=== PATIENT | female | born 1985 | race Two or more races ===

== ENCOUNTER 2020-10-24 19:30 | Emergency (ER) | payer MEDICAID, OTHER ==
[~2020-10-24] VITALS: Ht 165.1 cm; Wt 79.8 kg
[2020-10-24 20:40] VITALS: BP 130/75
[2020-10-24] MEDS ORDERED: NEOMYCIN-BACITRACIN-POLYM UNITDOSE PKG TOP OINT TOP ONE (21:15)
[2020-10-24] MEDS ORDERED: cefTRIAXone SOD 1,000 MG VL IM ONE (22:15)
[2020-10-24] MEDS ORDERED: TETANUS-DIPTH-ACEL PERTUSSIS 0.5ML SYR Tdap IM ONE (22:15)
== END 2020-10-24 22:35 | disposition home or self-care (01) ==
LOC: ER 19:30
DX: S61.012A Laceration without foreign body of left thumb without damage to nail, initial encounter (principal); Z23 Encounter for immunization; W01.0XXA Fall on same level from slipping, tripping and stumbling without subsequent striking against object, initial encounter; Y93.89 Activity, other specified; Y92.89 Other specified places as the place of occurrence of the external cause; Y99.8 Other external cause status
CPT/HCPCS: 12002; 73140; 90471; 90715; 96372; 99284; J0696; J2001

== ENCOUNTER 2020-12-12 21:16 | Emergency (ER) | payer MEDICAID ==
[~2020-12-12] VITALS: Ht 165.1 cm; Wt 77.1 kg
[2020-12-12 22:05] VITALS: BP 113/52
[2020-12-12] MEDS ORDERED: KETOROLAC TROMETH 60MG/2ML VIAL IM ONE (22:15)
== END 2020-12-12 22:38 | disposition home or self-care (01) ==
LOC: ER 21:16
DX: G54.0 Brachial plexus disorders (principal)
CPT/HCPCS: 96372; 99283; J1885

== ENCOUNTER 2024-07-23 20:54 | Inpatient (IN) | payer MEDICAID ==
[~2024-07-23] VITALS: Ht 165.1 cm; Wt 87.1 kg
[2024-07-23] MEDS: PIPERACILLIN-TAZO 4.5GM 100 ML IV ONE (01:15)
--- NOTE | 2024-07-23 21:17 | ED.PDOC ---
GI ASSESSMENT HPI Comments 38-year-old female with a history of chronic low back pain brought in by self complaining of lower abdominal/pelvic pain over the past hour. Patient describes the pain as as if I am in labor, severe, no particular exacerbating or alleviating factors. She denies any fever, nausea, vomiting, diarrhea, constipation or dysuria. She denies any abnormal vaginal bleeding or discharge. Chief Complaint: Pelvic Pain Time Seen by MD: 21:08 Primary Care Provider: HANNA Allergies: Coded Allergies: NO KNOWN ALLERGIES (Unverified , 10/24/20) Past Medical History Past Medical History (Other): Chronic back pain in pain management Surgical History (Other): , tubal ligation REGISTERED [facility] History: No Pertinent REGISTERED [facility] History Family History Family History: Reviewed,noncontributory to illness Social History Smoker: Non-Smoker Alcohol: Denies ETOH Use Drugs: Marijuana Lives In: Home All Other Systems: Reviewed and Negative (Comprehensive systems review obtained and negative except for what is stated in the HPI.) Physical Exam General Appearance: Moderate Distress HEENT: Other (Pupils symmetric, no facial asymmetry, moist mucous membranes) Neck: Full Range of Motion, Normal Inspection, Supple Respiratory: Lungs Clear, No Accessory Muscle Use, No Respiratory Distress, Normal Breath Sounds Cardiovascular: No Edema, No JVD, Regular Rate/Rhythm Breast Exam: Deferred Gastrointestinal: LLQ, RLQ, Suprapubic, Tenderness Genitalia: Deferred Pelvic: Deferred Rectal: Deferred Extremities: Normal inspection, Normal range of motion, Non-tender, No pedal edema Neurologic: Alert, No Motor Deficits, Normal Affect, Normal Mood, No Sensory Deficits Cerebellar Function: NOT DONE Reflexes: NOT DONE Skin: Dry, Normal Color, Warm Lymphatic: NOT DONE Was a procedure done? Was a procedure done?: No GI differential Dx Differential Diagnosis: Appendicitis, Bowel Obstruction, Constipation, Diverticular disease, Ectopic , Gastroenteritis, Ischemic Bowel, Ovarian cyst/torsion, PID, UTI, Urolithiasis, Food Poisoning, , Bacterial, Parasitic, Viral, Impaction, Kidney Stone X-Ray, Labs, Meds, VS Vital Signs Date Time Temp Pulse Resp B/P (MAP) Pulse Ox O2 Delivery O2 Flow Rate FiO2 07/23/24 21:09 97.4 113 19 165/90 (115) 95 Lab Test 07/23/24 21:50 07/23/24 21:10 Range/Units White Blood Count 7.5 4.4-10.8 10^3/uL Red Blood Count 5.00 4.0-5.20 10^6/uL Hemoglobin 14.6 12.2-16.2 g/dL Hematocrit 43.3 36.0-46.0 % Mean Corpuscular Volume 86.6 80.0-100.0 fL Mean Corpuscular Hemoglobin 29.2 28.0-32.0 pg Mean Corpuscular Hemoglobin Concent 33.7 32.0-36.0 g/dL Red Cell Distribution Width 12.8 11.8-14.3 % Platelet Count 242 140-450 10^3/uL Mean Platelet Volume 8.2 6.9-10.8 fL Neutrophils (%) (Auto) 61.0 37.0-80.0 % Lymphocytes (%) (Auto) 27.7 10.0-50.0 % Monocytes (%) (Auto) 7.1 0.0-12.0 % Eosinophils (%) (Auto) 3.9 0.0-7.0 % Basophils (%) (Auto) 0.3 0.0-2.0 % Neutrophils # (Auto) 4.6 1.6-8.6 10 ^3/uL Lymphocytes # (Auto) 2.1 0.4-5.4 10 ^3/uL Monocytes # (Auto) 0.5 0-1.3 10 ^3/uL Eosinophils # (Auto) 0.3 0-0.8 10 ^3/uL Basophils # (Auto) 0 0-0.2 10 ^3/uL Nucleated Red Blood Cells 0.1 % Sodium Level 140 136-145 mmol/L Potassium Level 3.6 3.5-5.1 mmol/L Chloride Level 106 98-107 mmol/L Carbon Dioxide Level 26 20-31 mmol/L Anion Gap 8 5-15 Blood Urea Nitrogen 12 9-23 mg/dL Creatinine 0.74 0.550-1.02 mg/dL Glomerular Filtration Rate Calc 105 >90 mL/min BUN/Creatinine Ratio 16.2 10.0-20.0 Serum Glucose 135 H 74-106 mg/dL Lactic Acid Level Pending Calcium Level 10.1 8.7-10.4 mg/dL Beta HCG, Quantitative 1.7 1.5-4.2 mIU/mL Urine Color Colorless Yellow Urine Clarity Clear Clear Urine pH 6.5 5.0-9.0 Urine Specific [place] 1.012 1.001-1.035 Urine Protein Negative Negative Urine Ketones Negative Negative Urine Blood 1+ H Negative /uL Urine Nitrite Negative Negative Urine Bilirubin Negative Negative Urine Urobilinogen Normal Negative mg/dL Urine Leukocyte Esterase Negative Negative /uL Urine RBC 2 0 - 4 /hpf Urine WBC <1 0 - 5 /hpf Urine Squamous Epithelial Cells Few <5 /hpf Urine Bacteria None seen None Seen /hpf Urine Glucose Normal Normal mg/dL PROCEDURE(s): ABPL - CT AB PEL WO CON-NO ORAL OR IV REASON: lower abd pain ORDER NUMBER(s): [id number], ACCESSION NUMBER(s): [id number] Exam: CT CT AB PEL WO CON-NO ORAL OR IV History: lower abd pain Comparison Study: None Technique: Multidetector spiral CT of the abdomen was performed from lung bases to pubic symphysis. Imaging was performed without IV contrast. Axial, coronal and sagittal multiplanar reformats were obtained from the axial data set by the technologist. Radiation Dose : 1. Abdomen/Pelvis: CTDIvol 11.1 mGy, DLP 600.18 mGy*cm. Findings: Evaluation of solid organs is limited due to lack of intravenous contrast use. Lung Bases: No acute or significant lung base finding. Normal heart size. No pleural or pericardial effusion. Liver: Liver is enlarged measuring up to 23 cm No focal lesions. Diffuse steatosis. Gallbladder and Biliary Tree: Gallbladder is surgically absent. Spleen: Unremarkable Pancreas: The pancreas is grossly normal in appearance. Adrenal Glands: Unremarkable Kidneys: Kidneys are grossly normal without calculi or hydronephrosis. Bladder: Grossly unremarkable for degree of distention. Bowel: The stomach is grossly normal in appearance. Mild concentric wall thickening throughout the distal transverse colon and ascending colon which may reflect mild infectious/inflammatory colitis. The appendix is not visualized; however, no secondary findings of acute appendicitis identified. Ascites: Absent Lymphadenopathy: No mesenteric, retroperitoneal or periportal lymphadenopathy. Abdominal Wall and Mesentery: Unremarkable. Vasculature: The visualized abdominal aorta is normal in size and caliber. Evaluation of abdominal and pelvic vessels is limited due to lack of intravenous contrast. Pelvic Organs: Unremarkable Musculoskeletal: No aggressive focal bony lesions, acute fractures or dislocation. IMPRESSION: 1. Mild infectious/inflammatory colitis. 2. Hepatomegaly with steatosis. Radiation optimization: All CT scans at this facility use at least one of these dose optimization techniques: automated exposure control mA and/or kV adjustment per patient size (includes targeted exams where dose is matched to clinical indication) or iterative reconstruction. EDURE(s): PELUS - PELVIC REASON: pelvic pain ORDER NUMBER(s): [id number], ACCESSION NUMBER(s): [id number] INDICATION: pelvic pain TECHNIQUE: Multiple real-time grayscale transabdominal sonographic images along with color and duplex Doppler of the uterus and ovaries were obtained. COMPARISON: None FINDINGS: The uterus measures 9.2 x 5.1 x 4.8 cm. The endometrial stripe measures 0.9 cm. Right ovary measures 1.8 x 1.4 x 1.8 cm with normal Doppler color flow. Simple cyst measuring up to 0.7 cm. Left ovary measures 3.6 x 3.2 x 2.1 cm with normal Doppler color flow. A simple cyst measures up to 1.4 cm. Free fluid in the cul-de-sac. IMPRESSION: 1. Grossly unremarkable pelvic ultrasound. X-Ray, Labs, Meds, VS Comment 38-year-old female with a history of chronic back pain complaining of severe pelvic/lower abdominal pain despite taking tramadol at home. Vitals Exam remarkable for moderate distress, suprapubic and bilateral lower quadrant tenderness to palpation, no tenderness to percussion, no rebound or guarding. CT abdomen and pelvis IMPRESSION: 1. Mild infectious/inflammatory colitis. 2. Hepatomegaly with steatosis. Pelvic ultrasound showed simple bilateral ovarian cysts and Doppler flow to both ovaries, otherwise grossly unremarkable CBC, basic metabolic panel, hCG, UA unremarkable for any abnormality of acute significance Lactate pending Patient treated with the following in the ED: 1 L 0.9 normal saline IV bolus, morphine 4 mg IV, Zofran 4 mg IV, Zosyn 4.5 g IV On re-evaluation, patient stated pain had somewhat improved, vitals were stable. Plan is to admit the patient for IV antibiotics and pain control. Time of 1ST Reevaluation: 21:30 Reevaluation 1ST: Unchanged Time of 2ND Reevaluation: 22:35 Reevaluation 2ND: Improved Patient Education/Counseling: Diagnosis, Treatment, Need For Follow Up Family Education/Counseling: No Family Present Departure 1 Departure Time of Disposition: 22:36 Impression: Primary Impression: Colitis Disposition: 09 ADMITTED INPATIENT Admit to: Med Surg Condition: Fair Critical Care Note Critical Care Time?: No Stability Stability form required: No Heart Score Heart Score: Heart Score Response (Comments) Value History N/A 0 EKG N/A 0 Age N/A 0 Risk Factors N/A 0 Troponin N/A 0 Total 0 MAURICIO GALVEZ MD Jul 23, 2024 21:17
[2024-07-23 22:03] LABS: Urine Bacteria None Seen /hpf (None Seen)
[2024-07-23 22:04] LABS: Basophils # (auto) 0 10 ^3/uL (0-0.2); Basophils % (auto) 0.3 % (0.0-2.0); Eosinophils # (auto) 0.3 10 ^3/uL (0-0.8); Eosinophils % (auto) 3.9 % (0.0-7.0); Hematocrit 43.3 % (36.0-46.0); Hemoglobin 14.6 g/dL (12.2-16.2); Lymphocytes # (auto) 2.1 10 ^3/uL (0.4-5.4); Lymphocytes % (auto) 27.7 % (10.0-50.0); Mean Corpuscular Hemoglobin 29.2 pg (28.0-32.0); Mean Corpuscular Hgb Conc. 33.7 g/dL (32.0-36.0); Mean Corpuscular Volume 86.6 fL (80.0-100.0); Monocytes # (auto) 0.5 10 ^3/uL (0-1.3); Monocytes % (auto) 7.1 % (0.0-12.0); Neutrophils # (auto) 4.6 10 ^3/uL (1.6-8.6); Nucleated Red Blood Cells % 0.1 %; Platelet Count (auto) 242 10^3/uL (140-450); Red Cell Distribution Width 12.8 % (11.8-14.3); White Blood Cell 7.5 10^3/uL (4.4-10.8)
[2024-07-23 22:12] LABS: Chloride 106 mmol/L (98-107); Potassium 3.6 mmol/L (3.5-5.1); Sodium 140 mmol/L (136-145)
[2024-07-23 22:13] LABS: Anion Gap 8 (5-15); Calcium 10.1 mg/dL (8.7-10.4); Carbon Dioxide 26 mmol/L (20-31)
--- NOTE | 2024-07-23 22:13 | DVH ---
Exam: CT CT AB PEL WO CON-NO ORAL OR IV History: lower abd pain Comparison Study: None Technique: Multidetector spiral CT of the abdomen was performed from lung bases to pubic symphysis. Imaging was performed without IV contrast. Axial, coronal and sagittal multiplanar reformats were ob tained from the axial data set by the technologist. Radiation Dose : 1. Abdomen/Pelvis: CTDIvol 11.1 mGy, DLP 600.18 mGy*cm. Findings: Evaluation of solid organs is limited due to lack of intravenous contrast use. Lung Bases: No acute or significant lung base finding. Normal heart size. No pleural or pericardial effusion. Liver: Liver is enlarged measuring up to 23 cm No focal lesions. Diffuse steatosis. Gallbladder and Biliary Tree: Gallbladder is surgically absent. Spleen: Unremarkable Pancreas: The pancreas is grossly normal in appearance. Adrenal Glands: Unremarkable Kidneys: Kidneys are grossly normal without calculi or hydronephrosis. Bladder: Grossly unremarkable for degree of distention. Bowel: The stomach is grossly normal in appearance. Mild concentric wall thickening throughout the di stal transverse colon and ascending colon which may reflect mild infectious/inflammatory colitis. Th e appendix is not visualized; however, no secondary findings of acute appendicitis identified. Ascites: Absent Lymphadenopathy: No mesenteric, retroperitoneal or periportal lymphadenopathy. Abdominal Wall and Mesentery: Unremarkable. Vasculature: The visualized abdominal aorta is normal in size and caliber. Evaluation of abdominal a nd pelvic vessels is limited due to lack of intravenous contrast. Pelvic Organs: Unremarkable Musculoskeletal: No aggressive focal bony lesions, acute fractures or dislocation. IMPRESSION: 1. Mild infectious/inflammatory colitis. 2. Hepatomegaly with steatosis. Radiation optimization: All CT scans at this facility use at least one of these dose optimization bob hniques: automated exposure control mA and/or kV adjustment per patient size (includes targeted exam s where dose is matched to clinical indication) or iterative reconstruction.
--- NOTE | 2024-07-23 22:15 | DVH ---
INDICATION: pelvic pain TECHNIQUE: Multiple real-time grayscale transabdominal sonographic images along with color and duplex Doppler of the uterus and ovaries were obtained. COMPARISON: None FINDINGS: The uterus measures 9.2 x 5.1 x 4.8 cm. The endometrial stripe measures 0.9 cm. Right ovary measures 1.8 x 1.4 x 1.8 cm with normal Doppler color flow. Simple cyst measuring up to 0.7 cm. Left ovary measures 3.6 x 3.2 x 2.1 cm with normal Doppler color flow. A simple cyst measures up to 1.4 cm. Free fluid in the cul-de-sac. IMPRESSION: 1. Grossly unremarkable pelvic ultrasound.
[2024-07-23 22:18] LABS: BUN/Creatinine Ratio 16.2 (10.0-20.0); Blood Urea Nitrogen 12 mg/dL (9-23); Glucose 135 mg/dL (74-106)
[2024-07-23 22:19] LABS: Urine Blood 1+ /uL (Negative); Urine Clarity Clear (Clear); Urine Color Colorless (Yellow); Urine Protein, UAD Negative (Negative); Urine Specific Gravity 1.012 (1.001-1.035); Urine Urobilinogen Normal (Negative); Urine WBC <1 /hpf (0 - 5); Urine pH 6.5 (5.0-9.0)
[2024-07-23] MEDS ORDERED: ACETAMINOPHEN 325 MG TAB PO PRN (22:45)
[2024-07-23] MEDS ORDERED: TEMAZEPAM 15 MG CAP PO PRN (22:45)
[2024-07-24 01:15] VITALS: PULSE 67; RESP 18; O2SAT 97
[2024-07-24] MEDS: MORPHINE SULFATE 4 MG/ML SYR/VIAL IV ONE (01:20)
[2024-07-24] MEDS: ONDANSETRON HCL 4 MG/2 ML VIAL IV ONE (01:21)
[2024-07-24] MEDS: SODIUM CHLORIDE 0.9% 1,000 ML IV ONE (01:21)
[2024-07-24] MEDS: metroNIDAZOLE 500MG/100ML 100 ML IV SCH (01:22)
--- NOTE | 2024-07-24 01:23 | DVHHP2 ---
History of Present Illness Reason for Visit: Abdominal pain History of Present Illness 38-year-old female presents for evaluation of abdominal pain. Patient endorses a one day history of sharp/cramping lower abdominal pain that is nonradiating. Denies nausea or vomiting. No diarrhea. No fever or chills. Past Medical History Denies Past Surgical History Tubal ligation and Family History Noncontributory Smoke: No ALCOHOL: none Drugs: Marijuana Lives: with Family Review of Systems Review of Systems Review of systems are currently negative otherwise addressed HPI. Allergies: Coded Allergies: NO KNOWN ALLERGIES (Unverified , 10/24/20) Medications Current Medications Medications Dose Ordered Sig/Vic Route Start Time Stop Time Status Last Admin Dose Admin Metronidazole 100 ml @ 100 mls/hr Q8HR IV 07/24/24 06:00 Acetaminophen/ Hydrocodone Bitart 1 tab Q4HP PRN PO 07/23/24 22:45 Temazepam 15 mg QHSP PRN PO 07/23/24 22:45 Ondansetron HCl 4 mg Q4HP PRN IV 07/23/24 22:45 Acetaminophen 650 mg Q6HP PRN PO 07/23/24 22:45 Morphine Sulfate 2 mg Q6HPRN PRN IV 07/23/24 22:45 Exam Vital Signs Vital Signs Date Time Temp Pulse Resp B/P (MAP) Pulse Ox O2 Delivery O2 Flow Rate FiO2 07/23/24 21:09 97.4 113 19 165/90 (115) 95 Exam Gen: 38-year-old female in mild distress Skin: Warm, dry, normal color and texture, no rash. HEENT: Normocephalic atraumatic, mucous membranes moist and pink. Neck: Cervical and supraclavicular nodes normal without enlargement, trachea is midline, thyroid gland is normal without masses. Pulmonary: Clear to auscultation and percussion bilaterally. Cardiac: Regular rate and rhythm. No murmur Abdomen: Soft, lower abdominal pain, nondistended, bowel sounds present all 4 quadrants, no guarding, no rigidity, no organomegaly. Extremities: No cyanosis, clubbing, no edema Neuro: Cranial nerves II through XII grossly intact, normal affect and speech, no focal motor deficits. Labs/Xrays ORDERING PHYSICIAN: MAURICIO GALVEZ MD PROCEDURE(s): PELUS - PELVIC REASON: pelvic pain ORDER NUMBER(s): [id number], ACCESSION NUMBER(s): [id number] INDICATION: pelvic pain TECHNIQUE: Multiple real-time grayscale transabdominal sonographic images along with color and duplex Doppler of the uterus and ovaries were obtained. COMPARISON: None FINDINGS: The uterus measures 9.2 x 5.1 x 4.8 cm. The endometrial stripe measures 0.9 cm. Right ovary measures 1.8 x 1.4 x 1.8 cm with normal Doppler color flow. Simple cyst measuring up to 0.7 cm. Left ovary measures 3.6 x 3.2 x 2.1 cm with normal Doppler color flow. A simple cyst measures up to 1.4 cm. Free fluid in the cul-de-sac. IMPRESSION: 1. Grossly unremarkable pelvic ultrasound. RING PHYSICIAN: MAURICIO GALVEZ MD PROCEDURE(s): ABPL - CT AB PEL WO CON-NO ORAL OR IV REASON: lower abd pain ORDER NUMBER(s): [id number], ACCESSION NUMBER(s): [id number] Exam: CT CT AB PEL WO CON-NO ORAL OR IV History: lower abd pain Comparison Study: None Technique: Multidetector spiral CT of the abdomen was performed from lung bases to pubic symphysis. Imaging was performed without IV contrast. Axial, coronal and sagittal multiplanar reformats were obtained from the axial data set by the technologist. Radiation Dose : 1. Abdomen/Pelvis: CTDIvol 11.1 mGy, DLP 600.18 mGy*cm. Findings: Evaluation of solid organs is limited due to lack of intravenous contrast use. Lung Bases: No acute or significant lung base finding. Normal heart size. No pleural or pericardial effusion. Liver: Liver is enlarged measuring up to 23 cm No focal lesions. Diffuse steatosis. Gallbladder and Biliary Tree: Gallbladder is surgically absent. Spleen: Unremarkable Pancreas: The pancreas is grossly normal in appearance. Adrenal Glands: Unremarkable Kidneys: Kidneys are grossly normal without calculi or hydronephrosis. Bladder: Grossly unremarkable for degree of distention. Bowel: The stomach is grossly normal in appearance. Mild concentric wall thickening throughout the distal transverse colon and ascending colon which may reflect mild infectious/inflammatory colitis. The appendix is not visualized; however, no secondary findings of acute appendicitis identified. Ascites: Absent Lymphadenopathy: No mesenteric, retroperitoneal or periportal lymphadenopathy. Abdominal Wall and Mesentery: Unremarkable. Vasculature: The visualized abdominal aorta is normal in size and caliber. Evaluation of abdominal and pelvic vessels is limited due to lack of intravenous contrast. Pelvic Organs: Unremarkable Musculoskeletal: No aggressive focal bony lesions, acute fractures or dislocation. IMPRESSION: 1. Mild infectious/inflammatory colitis. 2. Hepatomegaly with steatosis. Radiation optimization: All CT scans at this facility use at least one of these dose optimization techniques: automated exposure control mA and/or kV adjustment per patient size (includes targeted exams where dose is matched to clinical indication) or iterative reconstruction. Labs Test 07/23/24 21:50 07/23/24 21:10 Range/Units White Blood Count 7.5 4.4-10.8 10^3/uL Red Blood Count 5.00 4.0-5.20 10^6/uL Hemoglobin 14.6 12.2-16.2 g/dL Hematocrit 43.3 36.0-46.0 % Mean Corpuscular Volume 86.6 80.0-100.0 fL Mean Corpuscular Hemoglobin 29.2 28.0-32.0 pg Mean Corpuscular Hemoglobin Concent 33.7 32.0-36.0 g/dL Red Cell Distribution Width 12.8 11.8-14.3 % Platelet Count 242 140-450 10^3/uL Mean Platelet Volume 8.2 6.9-10.8 fL Neutrophils (%) (Auto) 61.0 37.0-80.0 % Lymphocytes (%) (Auto) 27.7 10.0-50.0 % Monocytes (%) (Auto) 7.1 0.0-12.0 % Eosinophils (%) (Auto) 3.9 0.0-7.0 % Basophils (%) (Auto) 0.3 0.0-2.0 % Neutrophils # (Auto) 4.6 1.6-8.6 10 ^3/uL Lymphocytes # (Auto) 2.1 0.4-5.4 10 ^3/uL Monocytes # (Auto) 0.5 0-1.3 10 ^3/uL Eosinophils # (Auto) 0.3 0-0.8 10 ^3/uL Basophils # (Auto) 0 0-0.2 10 ^3/uL Nucleated Red Blood Cells 0.1 % Sodium Level 140 136-145 mmol/L Potassium Level 3.6 3.5-5.1 mmol/L Chloride Level 106 98-107 mmol/L Carbon Dioxide Level 26 20-31 mmol/L Anion Gap 8 5-15 Blood Urea Nitrogen 12 9-23 mg/dL Creatinine 0.74 0.550-1.02 mg/dL Glomerular Filtration Rate Calc 105 >90 mL/min BUN/Creatinine Ratio 16.2 10.0-20.0 Serum Glucose 135 H 74-106 mg/dL Lactic Acid Level 1.5 0.4-2.0 mmol/L Calcium Level 10.1 8.7-10.4 mg/dL Beta HCG, Quantitative 1.7 1.5-4.2 mIU/mL Urine Color Colorless Yellow Urine Clarity Clear Clear Urine pH 6.5 5.0-9.0 Urine Specific [place] 1.012 1.001-1.035 Urine Protein Negative Negative Urine Ketones Negative Negative Urine Blood 1+ H Negative /uL Urine Nitrite Negative Negative Urine Bilirubin Negative Negative Urine Urobilinogen Normal Negative mg/dL Urine Leukocyte Esterase Negative Negative /uL Urine RBC 2 0 - 4 /hpf Urine WBC <1 0 - 5 /hpf Urine Squamous Epithelial Cells Few <5 /hpf Urine Bacteria None seen None Seen /hpf Urine Glucose Normal Normal mg/dL Assessment/Plan Assessment/Plan Assessment Acute abdominal pain Acute colitis Plan Admit the patient to [facility] to the hospitalist Clear liquid diet GI consult Flagyl Pain management Continue treatment per orders. Plan discussed with: Patient My Orders Orders - LINDA POWELL AGACNP Procedure Category Date Status Time Metronidazole PHA 07/24/24 In Process 500mg/100ml (Flagyl 06:00 * [facility] Certified Supervisor CONS 07/23/24 Transmitted 22:43 Basic Metabolic Panel LAB 07/24/24 Logged 04:00 Admit ADMIT 07/23/24 Transmitted 22:43 Hydrocodone-Acet PHA 07/23/24 In Process 5/325mg Tab (Hasty 22:45 Temazepam (Restoril) PHA 07/23/24 In Process 22:45 Ondansetron Hcl PHA 07/23/24 In Process (Zofran) 22:45 Condition: Stable SUNI 07/23/24 In Process 22:43 Acetaminophen Tablet PHA 07/23/24 In Process (Tylenol Tablet) 22:45 Clear Liq Diet DIET 07/24/24 Transmitted Breakfast Bedrest With Bathroom SUNI 07/23/24 In Process Privileg 22:43 Morphine Sulfate PHA 07/23/24 In Process Injection 22:45 Date of Service: Jul 23, 2024 Billing Provider: LINDA POWELL Common Visit Codes: [id number] INP/OBS CARE (MOD) LINDA POWELL Jul 24, 2024 01:23
[2024-07-24 06:18] LABS: Chloride 107 mmol/L (98-107); Potassium 3.8 mmol/L (3.5-5.1); Sodium 141 mmol/L (136-145)
[2024-07-24 06:19] LABS: Anion Gap 7 (5-15); Carbon Dioxide 27 mmol/L (20-31)
[2024-07-24 06:20] LABS: Calcium 9.6 mg/dL (8.7-10.4)
[2024-07-24 06:25] LABS: BUN/Creatinine Ratio 15.2 (10.0-20.0); Blood Urea Nitrogen 10 mg/dL (9-23); Glucose 139 mg/dL (74-106)
[2024-07-24] MEDS: MORPHINE SULFATE INJ 2 MG/ml SYRG IV PRN (06:37)
[2024-07-24] MEDS: ONDANSETRON HCL 4 MG/2 ML VIAL IV PRN (06:38)
[2024-07-24 07:30] VITALS: PULSE 56; RESP 18; O2SAT 98
--- NOTE | 2024-07-24 12:47 | DVHINCON2 ---
GI Consult Consult Note Date of Consultation: 07/24/2024 Chief Complaint: Abdominal pain Referring Physician: Conrado H&P: 38-year-old female with a history of low back pain admitted with lower abdominal pain, with CT scan findings concerning for inflammatory or infectious colitis. Patient denies diarrhea , nausea or vomiting. She only complains of abdominal pain. She denies any prior history. GI consultation was obtained for evaluation. Past Medical History: As above Past Surgical History: 1. 2. Tubal ligation Social History: No tobacco or EtOH Marijuana use Family History: No gastrointestinal diseases or malignancies Current Medications Medications (Trade) Dose Ordered Sig/Vic Route Start Time Stop Time Status Last Admin Dose Admin Metronidazole 100 ml @ 100 mls/hr Q8HR IV 07/24/24 06:00 07/24/24 06:37 100 MLS/HR Acetaminophen/ Hydrocodone Bitart ([place] 5/325MG Tab) 1 tab Q4HP PRN PO 07/23/24 22:45 Temazepam (Restoril) 15 mg QHSP PRN PO 07/23/24 22:45 Ondansetron HCl (Zofran) 4 mg Q4HP PRN IV 07/23/24 22:45 07/24/24 12:18 4 MG Acetaminophen (Tylenol Tablet) 650 mg Q6HP PRN PO 07/23/24 22:45 Morphine Sulfate 2 mg Q6HPRN PRN IV 07/23/24 22:45 07/24/24 12:19 2 MG Review of Systems: Constitutional: no fever, chill, weight loss HEENT: no eye pain, no hearing loss, no oral lesion, no scleral icterus Heart: no chest pain, no chest pressure Lung: no cough, no dyspnea with exertion Abdomen: see HPI : no pain with urination, normal appearing urine Musculoskeletal: History of back pain Neurological: no seizure, no loss of sensation, no weakness in extremities Pysch: no depression, no anxiety Derm: no rash, no jaundice Vital Signs Date Time Temp Pulse Resp B/P (MAP) Pulse Ox O2 Delivery O2 Flow Rate FiO2 07/24/24 12:19 60 17 112/84 07/24/24 12:00 99 07/24/24 07:30 Room Air* 0 21 07/24/24 07:00 97.9 97.9 Physical exam: General: NAD, AAOX3 HEENT: PERRL, no scleral icterus, normal hearing, gums without lesions or bleeding, oropharynx clear without erythema or exudate. Neck: Supple without enlargement of the thyroid, or lymphadenopathy. Heart: RRR, Abdomen: mild tenderness to palpation left upper quadrant Extremities: no edema, no cyanosis Neurological: CN II-XII intact, sensation intact in all extremities, 5+ strength in all extremities, no asterixis Skin: No rashes, No jaundice Labs: Laboratory Results 07/24/24 05:36: Sodium Level 141, Potassium Level 3.8, Chloride Level 107, Carbon Dioxide Level 27, Anion Gap 7, Blood Urea Nitrogen 10, Creatinine 0.66, Glomerular Filtration Rate Calc 114, BUN/Creatinine Ratio 15.2, Serum Glucose 139, Calcium Level 9.6 07/23/24 21:50: White Blood Count 7.5, Red Blood Count 5.00, Hemoglobin 14.6, Hematocrit 43.3, Mean Corpuscular Volume 86.6, Mean Corpuscular Hemoglobin 29.2, Mean Corpuscular Hemoglobin Concent 33.7, Red Cell Distribution Width 12.8, Platelet Count 242, Mean Platelet Volume 8.2, Neutrophils (%) (Auto) 61.0, Lymphocytes (%) (Auto) 27.7, Monocytes (%) (Auto) 7.1, Eosinophils (%) (Auto) 3.9, Basophils (%) (Auto) 0.3, Neutrophils # (Auto) 4.6, Lymphocytes # (Auto) 2.1, Monocytes # (Auto) 0.5, Eosinophils # (Auto) 0.3, Basophils # (Auto) 0, Nucleated Red Blood Cells 0.1, Lactic Acid Level 1.5, Beta HCG, Quantitative 1.7 07/23/24 21:10: Urine Color Colorless, Urine Clarity Clear, Urine pH 6.5, Urine Specific [place] 1.012, Urine Protein Negative, Urine Ketones Negative, Urine Blood 1+, Urine Nitrite Negative, Urine Bilirubin Negative, Urine Urobilinogen Normal, Urine Leukocyte Esterase Negative, Urine RBC 2, Urine WBC <1, Urine Squamous Epithelial Cells Few, Urine Bacteria None seen, Urine Glucose Normal Imaging: ct scan IMPRESSION: 1. Mild infectious/inflammatory colitis. 2. Hepatomegaly with steatosis. Vital Signs Date Time Temp Pulse Resp B/P (MAP) Pulse Ox O2 Delivery O2 Flow Rate FiO2 11/25/24 12:19 60 17 112/84 07/24/24 12:00 61 17 112/84 (93) 99 07/24/24 10:00 64 17 128/68 (88) 98 07/24/24 08:00 55 07/24/24 07:30 56 19 118/61 07/24/24 07:30 56 18 98 Room Air* 0 21 07/24/24 07:00 97.9 56 18 118/61 (80) 98 97.9 07/24/24 06:37 66 16 121/69 07/24/24 06:35 66 16 121/69 (86) 99 07/24/24 01:20 63 18 118/63 07/24/24 01:15 97.9 67 18 119/67 (84) 97 97.9 07/24/24 01:15 67 18 97 Room Air* 0 07/23/24 21:09 97.4 113 19 165/90 (115) 95 Lab Test 07/24/24 05:36 07/23/24 21:50 07/23/24 21:10 Range/Units Sodium Level 141 140 136-145 mmol/L Potassium Level 3.8 3.6 3.5-5.1 mmol/L Chloride Level 107 106 98-107 mmol/L Carbon Dioxide Level 27 26 20-31 mmol/L Anion Gap 7 8 5-15 Blood Urea Nitrogen 10 12 9-23 mg/dL Creatinine 0.66 0.74 0.550-1.02 mg/dL Glomerular Filtration Rate Calc 114 105 >90 mL/min BUN/Creatinine Ratio 15.2 16.2 10.0-20.0 Serum Glucose 139 H 135 H 74-106 mg/dL Calcium Level 9.6 10.1 8.7-10.4 mg/dL White Blood Count 7.5 4.4-10.8 10^3/uL Red Blood Count 5.00 4.0-5.20 10^6/uL Hemoglobin 14.6 12.2-16.2 g/dL Hematocrit 43.3 36.0-46.0 % Mean Corpuscular Volume 86.6 80.0-100.0 fL Mean Corpuscular Hemoglobin 29.2 28.0-32.0 pg Mean Corpuscular Hemoglobin Concent 33.7 32.0-36.0 g/dL Red Cell Distribution Width 12.8 11.8-14.3 % Platelet Count 242 140-450 10^3/uL Mean Platelet Volume 8.2 6.9-10.8 fL Neutrophils (%) (Auto) 61.0 37.0-80.0 % Lymphocytes (%) (Auto) 27.7 10.0-50.0 % Monocytes (%) (Auto) 7.1 0.0-12.0 % Eosinophils (%) (Auto) 3.9 0.0-7.0 % Basophils (%) (Auto) 0.3 0.0-2.0 % Neutrophils # (Auto) 4.6 1.6-8.6 10 ^3/uL Lymphocytes # (Auto) 2.1 0.4-5.4 10 ^3/uL Monocytes # (Auto) 0.5 0-1.3 10 ^3/uL Eosinophils # (Auto) 0.3 0-0.8 10 ^3/uL Basophils # (Auto) 0 0-0.2 10 ^3/uL Nucleated Red Blood Cells 0.1 % Lactic Acid Level 1.5 0.4-2.0 mmol/L Beta HCG, Quantitative 1.7 1.5-4.2 mIU/mL Urine Color Colorless Yellow Urine Clarity Clear Clear Urine pH 6.5 5.0-9.0 Urine Specific [place] 1.012 1.001-1.035 Urine Protein Negative Negative Urine Ketones Negative Negative Urine Blood 1+ H Negative /uL Urine Nitrite Negative Negative Urine Bilirubin Negative Negative Urine Urobilinogen Normal Negative mg/dL Urine Leukocyte Esterase Negative Negative /uL Urine RBC 2 0 - 4 /hpf Urine WBC <1 0 - 5 /hpf Urine Squamous Epithelial Cells Few <5 /hpf Urine Bacteria None seen None Seen /hpf Urine Glucose Normal Normal mg/dL Current Medications Medications (Trade) Dose Ordered Sig/Vic Route Start Time Stop Time Status Last Admin Sodium Chloride 1,000 ml @ 1,000 mls/hr Q1H ONCE IV 07/23/24 21:15 07/23/24 22:14 DC 07/24/24 01:21 Morphine Sulfate 4 mg ONCE ONCE IV 07/23/24 21:15 07/23/24 21:16 DC 07/24/24 01:20 Ondansetron HCl (Zofran) 4 mg ONCE ONCE IV 07/23/24 21:15 07/23/24 21:16 DC 07/24/24 01:21 Piperacillin Sod/ Tazobactam Sod 100 ml @ 100 mls/hr ONCE ONCE IV 07/23/24 22:45 07/23/24 23:44 DC 07/23/24 01:15 Metronidazole 100 ml @ 100 mls/hr Q8HR IV 07/24/24 06:00 07/24/24 06:37 Ondansetron HCl (Zofran) 4 mg Q4HP PRN IV 07/23/24 22:45 07/24/24 12:18 Morphine Sulfate 2 mg Q6HPRN PRN IV 07/23/24 22:45 07/24/24 12:19 Assessment: # abdominal pain # colitis on imaging Plan: 1. Continue current medications 2. Stool studies 3. IV fluids 4. Soft diet as tolerated 5. Consider colonoscopy and/or further workup if symptoms persist or worsen 6. Discharge home if the patient's symptoms improved Date of Service: Jul 24, 2024 Billing Provider: SUBHASH GRACIA MD Common Visit Codes: [id number] INP/OBS CARE (HIGH) Consultation Codes: [id number] CONSULT <60MIN SUBHASH GRACIA MD Jul 24, 2024 12:47
--- NOTE | 2024-07-24 14:03 | DVHPN2 ---
Subjective Patient continues to have right and left lower quadrant abdominal pain, rated a 6/10. Reviewed: Care Plan, H&P, Labs, Previous Orders Changes from previous H/P or p: No Changes General: Per HPI Objective Vitals Vital Signs Date Time Temp Pulse Resp B/P (MAP) Pulse Ox O2 Delivery O2 Flow Rate FiO2 07/24/24 12:19 60 17 112/84 07/24/24 12:00 99 07/24/24 07:30 Room Air* 0 21 07/24/24 07:00 97.9 97.9 Intake/Output Intake and Output 07/24/24 07:00 Intake Total 100 ml Balance 100 ml Intake IV Total 100 ml General Appearance: Alert, Oriented X3, Cooperative, No acute distress HEENT: Atraumatic, PERRLA Lungs: Clear to auscultation, Normal air movement Cardiovascular: Normal S1, Normal S2 Abdomen: Normal bowel sounds, Soft, No tenderness, No hepatospenomegaly, No masses Genitourinary: No Apparent Abnormalities Musculoskeletal: Normal sensory function, Normal motor function Neuro: Normal gait, Normal speech Psych/Mental Status: Mental status NL, Mood NL Medications Current Medications Medications Dose Ordered Sig/Vic Route Start Time Stop Time Status Last Admin Dose Admin Metronidazole 100 ml @ 100 mls/hr Q8HR IV 07/24/24 06:00 07/24/24 06:37 100 MLS/HR Acetaminophen/ Hydrocodone Bitart 1 tab Q4HP PRN PO 07/23/24 22:45 Temazepam 15 mg QHSP PRN PO 07/23/24 22:45 Ondansetron HCl 4 mg Q4HP PRN IV 07/23/24 22:45 07/24/24 12:18 4 MG Acetaminophen 650 mg Q6HP PRN PO 07/23/24 22:45 Morphine Sulfate 2 mg Q6HPRN PRN IV 07/23/24 22:45 07/24/24 12:19 2 MG Laboratory Results Laboratory Tests 07/23/24 21:50 07/24/24 05:36 Chemistry Test 07/23/24 21:50 07/24/24 05:36 Calcium Level 10.1 mg/dL (8.7-10.4) 9.6 mg/dL (8.7-10.4) Urinalysis Test 07/23/24 21:10 Urine Color Colorless (Yellow) Urine Clarity Clear (Clear) Urine pH 6.5 (5.0-9.0) Urine Specific [place] 1.012 (1.001-1.035) Urine Protein Negative (Negative) Urine Ketones Negative (Negative) Urine Blood 1+ /uL (Negative) H Urine Nitrite Negative (Negative) Urine Bilirubin Negative (Negative) Urine Urobilinogen Normal mg/dL (Negative) Urine Leukocyte Esterase Negative /uL (Negative) Urine RBC 2 /hpf (0 - 4) Urine WBC <1 /hpf (0 - 5) Urine Squamous Epithelial Cells Few /hpf (<5) Urine Bacteria None seen /hpf (None Seen) Urine Glucose Normal mg/dL (Normal) Labs and/or images reviewed: Labs reviewed by me, Image(s) reviewed by me Assessment/Plan Assessment/Plan Impression: -acute colitis -obesity Plan: -continue IV antibiotics -advanced to full liquid diet -pain management -reassess for discharge in a.m. Total time spent with patient discussing and formulating plan of care: 35 minutes. This medical document was created using an electronic medical record system with [employer] dictation system. Although this document has been carefully reviewed, there may still be some phonetic and typographical errors. These areas are purely typographical due to imperfections of the software programs, and do not reflect any compromise in the patient's medical care. Plan discussed with: Patient, Other (RN) Date of Service: Jul 24, 2024 Billing Provider: VINI HOLLAND NP Common Visit Codes: [id number] INP/OBS CARE(HIGH) VINI HOLLAND NP Jul 24, 2024 14:03
[2024-07-24 20:50] VITALS: BP 119/53; PULSE 68; RESP 18; TEMP 98.6; O2SAT 97
[2024-07-24] MEDS: HYDROcodone-ACET 5/325MG TAB PO PRN (22:03)
[2024-07-24 23:04] VITALS: BP 100/58; PULSE 60; RESP 18; TEMP 98.5; O2SAT 97
[2024-07-25 05:51] VITALS: BP 103/43; PULSE 60; RESP 18; TEMP 98.4; O2SAT 95
[2024-07-25 07:40] VITALS: BP 107/50; PULSE 57; RESP 18; TEMP 98.3; O2SAT 98
[2024-07-25 07:46] VITALS: BP 107/50; PULSE 57; PULSE 72; RESP 18; TEMP 98.3; O2SAT 98
[2024-07-25] MEDS ORDERED: TRAM50TA2 PO (08:39)
[2024-07-25] MEDS ORDERED: GABA-1250 PO (08:40)
[2024-07-25] MEDS ORDERED: METR-344 PO (08:51)
--- NOTE | 2024-07-25 08:55 | DVHDS2 ---
Discharge Summary Date of Admission Jul 23, 2024 at 22:45 Date of Discharge: Jul 25, 2024 Admitting Diagnosis Acute colitis Labs/Diagnostic Data: Laboratory Results Test 07/24/24 05:36 07/23/24 21:50 07/23/24 21:10 Sodium Level 141 mmol/L (136-145) Potassium Level 3.8 mmol/L (3.5-5.1) Chloride Level 107 mmol/L (98-107) Carbon Dioxide Level 27 mmol/L (20-31) Anion Gap 7 (5-15) Blood Urea Nitrogen 10 mg/dL (9-23) Creatinine 0.66 mg/dL (0.550-1.02) Glomerular Filtration Rate Calc 114 mL/min (>90) BUN/Creatinine Ratio 15.2 (10.0-20.0) Serum Glucose 139 mg/dL (74-106) Calcium Level 9.6 mg/dL (8.7-10.4) White Blood Count 7.5 10^3/uL (4.4-10.8) Red Blood Count 5.00 10^6/uL (4.0-5.20) Hemoglobin 14.6 g/dL (12.2-16.2) Hematocrit 43.3 % (36.0-46.0) Mean Corpuscular Volume 86.6 fL (80.0-100.0) Mean Corpuscular Hemoglobin 29.2 pg (28.0-32.0) Mean Corpuscular Hemoglobin Concent 33.7 g/dL (32.0-36.0) Red Cell Distribution Width 12.8 % (11.8-14.3) Platelet Count 242 10^3/uL (140-450) Mean Platelet Volume 8.2 fL (6.9-10.8) Neutrophils (%) (Auto) 61.0 % (37.0-80.0) Lymphocytes (%) (Auto) 27.7 % (10.0-50.0) Monocytes (%) (Auto) 7.1 % (0.0-12.0) Eosinophils (%) (Auto) 3.9 % (0.0-7.0) Basophils (%) (Auto) 0.3 % (0.0-2.0) Neutrophils # (Auto) 4.6 10 ^3/uL (1.6-8.6) Lymphocytes # (Auto) 2.1 10 ^3/uL (0.4-5.4) Monocytes # (Auto) 0.5 10 ^3/uL (0-1.3) Eosinophils # (Auto) 0.3 10 ^3/uL (0-0.8) Basophils # (Auto) 0 10 ^3/uL (0-0.2) Nucleated Red Blood Cells 0.1 % Lactic Acid Level 1.5 mmol/L (0.4-2.0) Beta HCG, Quantitative 1.7 mIU/mL (1.5-4.2) Urine Color Colorless (Yellow) Urine Clarity Clear (Clear) Urine pH 6.5 (5.0-9.0) Urine Specific [place] 1.012 (1.001-1.035) Urine Protein Negative (Negative) Urine Ketones Negative (Negative) Urine Blood 1+ /uL (Negative) Urine Nitrite Negative (Negative) Urine Bilirubin Negative (Negative) Urine Urobilinogen Normal mg/dL (Negative) Urine Leukocyte Esterase Negative /uL (Negative) Urine RBC 2 /hpf (0 - 4) Urine WBC <1 /hpf (0 - 5) Urine Squamous Epithelial Cells Few /hpf (<5) Urine Bacteria None seen /hpf (None Seen) Urine Glucose Normal mg/dL (Normal) Other Laboratory Tests 07/24/24 05:36 07/23/24 21:50 Brief Hx & Hospital Course: History of Present Illness 38-year-old female presents for evaluation of abdominal pain. Patient endorses a one day history of sharp/cramping lower abdominal pain that is nonradiating. Denies nausea or vomiting. No diarrhea. No fever or chills. Course of hospitalization: Patient was started on antibiotic therapy, hydration. Patient's diet was advanced to full liquid with the patient having no increase in abdominal pain. She denies having any diarrhea. Patient was reassessed today and is agreeable to be discharged home and continue antibiotic therapy with p.o. Flagyl 500 mg 3 times a day for five days. She was instructed to follow up with the discharge Clinic in one week if she was unable to get an appointment with her PCP in 1-2 weeks. Physical examination General: Alert and Oriented x3. No acute distress. Well-nourished. Eyes: EOMI. Anicteric. HENT: Moist mucous membranes. Lungs: Clear to auscultation bilaterally. No accessory muscle use. Cardiovascular: Regular rate and rhythm. No murmur. No JVD. Abdomen: Soft, non-tender and non-distended. No palpable masses. Extremities: No edema. Non-tender. Skin: No rashes or lesions. Warm. Neurologic: No focal neurological deficits. CN II-XII grossly intact, but not individually tested. Psychiatric: Cooperative. Appropriate mood and affect. Total time spent with patient discussing and formulating plan of care: 35 minutes. This medical document was created using an electronic medical record system with [employer] dictation system. Although this document has been carefully reviewed, there may still be some phonetic and typographical errors. These areas are purely typographical due to imperfections of the software programs, and do not reflect any compromise in the patient's medical care. Consults/Reason for consult Gastroenterology: Abdominal pain Condition at Discharge: Fair Final Diagnosis/Problems List Acute colitis Secondary Diagnosis: Obesity Discharge Disposition: Home Discharge Instruct/Medications Diet: Regular Follow Up/Referral: -discharge Clinic in one week PCP in 1-2 weeks Medications: Flagyl 500 mg p.o. 3 times a day x5 days 36 Discharge Statement: "Patient was advised to return to the ER or call 911 if any headaches, dizziness, shortness of breath, chest pain, abdominal pain, bleeding, fevers, or worsening of medical condition. Patient was counseled about treatment plan, medications, possible side effects, patientverbalized understanding. All questions were answered to the best of my ability. This discharge took greater then 30 minutes in planning, reviewing documentation, counseling the patient, and discussing with other team members." ASSESSMENT ASSESSMENT Assessment Date of Service: Jul 25, 2024 Billing Provider: VINI HOLLAND NP Common Visit Codes: [id number] DISCH DAY >30min VINI HOLLAND NP Jul 25, 2024 08:55
== END 2024-07-25 11:15 | disposition home or self-care (01) | DRG 249 ==
LOC: ER 20:54 → OVERFLOW 22:45
PROVIDERS: ADMIT Nurse Practitioner; ATTEND Nurse Practitioner Acute Care
DX: K52.9 Noninfective gastroenteritis and colitis, unspecified (principal); E66.9 Obesity, unspecified; G89.29 Other chronic pain; Z68.32 Body mass index [BMI] 32.0-32.9, adult; Z79.899 Other long term (current) drug therapy
CPT/HCPCS: 36415; 74176; 76856; 80048; 81001; 83605; 84702; 85025; G0378; J2405; J2543; J3490